=== PATIENT | male | born 1995 | race Two or more races ===

== ENCOUNTER 2016-11-05 11:02 | Emergency (ER) | payer BC, OTHER ==
[2016-11-05 11:08] VITALS: BP 129/70
--- NOTE | 2016-11-05 11:08 | ER Document Report ---
ED Medical Screen (RME) - General Stated Complaint: FINGER PAIN Time seen by provider: 11:06 Mode of Arrival: Ambulatory Information source: Patient Notes: 21-year-old male cut the palmar aspect of the middle phalanx of the fourth and fifth finger of the right hand with steel 30 minutes ago. Tetanus is current. He states the fourth finger is worse than the fifth. - Related Data Allergies/Adverse Reactions: No Known Allergies Allergy (Verified 11/05/16 11:05)
[2016-11-05] MEDS ORDERED: LIDOCAINE 1% INJ-PF (10 MG/ML) 30 ML SDV INJ ONE (12:00)
--- NOTE | 2016-11-05 13:23 | ER Document Report ---
ED Hand/Wrist Injury - General Chief Complaint: Laceration Stated Complaint: FINGER PAIN Mode of Arrival: Ambulatory Notes: Patient was carrying a steel plate that had a sharp edge when it slipped and cut his right fourth and fifth fingers. He has about a 1 cm laceration of each finger, the one on the fourth finger is significantly deeper into the subcutaneous fat tissue while the one on the fifth finger barely opens or spreads open. No other injuries or complaints. Says he can flex both those fingers and has sensation in the tips distally last tetanus shot was less than 6 months ago. Patient is right-hand dominant. TRAVEL OUTSIDE OF THE [place] IN LAST 30 DAYS: No - Related Data Allergies/Adverse Reactions: No Known Allergies Allergy (Verified 11/05/16 11:05) Past Medical History - General Information source: Patient - Social History Smoking Status: Unknown if Ever Smoked Chew tobacco use (# tins/day): No Frequency of alcohol use: None Drug Abuse: None Family History: Reviewed & Not Pertinent Patient has suicidal ideation: No Patient has homicidal ideation: No Surgical Hx: Negative - Immunizations Hx Diphtheria, Pertussis, Tetanus Vaccination: Yes Review of Systems - Review of Systems Constitutional: denies: Fever Cardiovascular: denies: Chest pain Gastrointestinal: denies: Abdominal pain Musculoskeletal: denies: Deformity Skin: See HPI Neurological/Psychological: No symptoms reported Physical Exam - Vital signs Vitals: Temp Pulse Resp BP Pulse Ox 98.0 F 58 L 14 129/70 H 99 11/05/16 11:06 11/05/16 11:06 11/05/16 11:06 11/05/16 11:06 11/05/16 11:06 Interpretation: Normal - Notes Notes: PHYSICAL EXAMINATION: GENERAL: Well-appearing, in no acute distress. Vital signs are normal. HEAD: Atraumatic, normocephalic. LUNGS: Breath sounds clear and equal bilaterally. HEART: Regular rate and rhythm without murmurs. ABDOMEN: Soft, nontender. No guarding or rebound. EXTREMITIES: Patient has lacerations on the palmar aspect of the right ring and fifth fingers. Laceration of the right ring finger is 2 cm in length and slightly U-shaped reverse flap in the midportion of that finger between the PIP and DIP. There is a 1 cm laceration of the right fifth finger, over the DIP joint to the radial side. This laceration barely spreads apart. Both fingers have good needle prick sensation at the tips. Both fingers are able to flex as expected without any loss of function. Good capillary refill of both finger nails. All other joints are normal. NEUROLOGICAL: Normal speech, normal gait. Normal sensory, motor, and reflex exams. Awake, alert, and oriented x3. Cranial nerves normal. SKIN: Warm, dry, no rashes. Course - Vital Signs Vital signs: Temp Pulse Resp BP Pulse Ox 98.0 F 58 L 14 129/70 H 99 11/05/16 11:06 11/05/16 11:06 11/05/16 11:06 11/05/16 11:06 11/05/16 11:06 Procedures - Laceration/Wound Repair Right Fourth Finger Wound length (cm): 2 - right fourth finger Wound's Depth, Shape: Flap - Reverse. No: Into muscle, Stellate Laceration pre-procedure: Sterile drapes applied Anesthetic type: 1% Lidocaine Volume Anesthetic (mLs): 2 Wound explored: Foreign body removed - Wound appears to have some very tiny, barely visible, black particles near the edge. I do not see any these particles deeper into the subcutaneous tissue of the wound. Patient says that there were some tiny metallic fragments on the plates that he was carrying. About 3 or 4 them appear to be embedded around the edge of the wound and I scrubbed very firmly and vigorously with a dampened 4 x 4 and I think I got all of these particles out. Irrigated w/ Saline (mLs): 1,000 Wound Debrided: Minimal Wound Repaired With: Sutures Suture Size/Type: 5:0 Number of Sutures: 3 Layer Closure?: No Post-procedure wound care: Sterile dressing applied Post-procedure NV exam normal: Yes Complications: No Notes: 11/05/16 16:45 In the adjacent fifth finger, there is a small 1 cm laceration that was prepped and anesthetized with less than 1 mL of Xylocaine. This wound was closed with 5 -0 Ethilon 1. Hands front picture: 1 - 2 lacerations shown in this diagram, one near the DIP of the fifth finger and the other one between the PIP and DIP of the fourth finger. Total of (3+1) 4 sutures to close both wounds. Discharge - Discharge Clinical Impression: Laceration of fingers without complication Qualifiers: Encounter type: initial encounter Qualified Code(s): S61.219A - Laceration without foreign body of unspecified finger without damage to nail, initial encounter Disposition: HOME, SELF-CARE Additional Instructions: LACERATION CARE: Your laceration has been sutured to keep the skin edges aligned during healing. The time of suture removal depends on the nature and location of your cut. Please follow the care instructions the doctor has outlined for you and return for further care, according to the schedule you've been given. Keep the wound and dressing clean. Unless you were told otherwise, you may shower daily, blotting the wound dry with a clean, unused towel. At other times, If the dressing gets wet or blood soaked, remove it and blot the wound dry, then reapply a new dressing. Unless you were instructed otherwise, dressings should be changed at least daily. If any signs of infection occur (swelling, redness, drainage, increasing tenderness, red streaks, tender lumps in the armpit or groin above the laceration, or fever), see the doctor immediately. SOAP CLEANSING: Gently wash the wound daily using a mild soap (like Ivory, Phisoderm, Neutrogena). Use warm water, rubbing gently until all debris, ooze, and crusting have been washed from the wound. Allow to dry briefly (about 10 minutes) after cleaning. Repeat this cleansing at least three times a day for the first two days and then once or twice a day. ANTIBIOTIC OINTMENT PROTECTION: Your wounds are such that dressing them is not practical or optional. After cleansing, you should apply a thin coating of antibiotic ointment ( Bacitracin, not Neosporin) to the wounds at least three times daily. This lessens infection risk, and may decrease the amount of scarring. Use a q-tip or dull butter knife, not your finger, to apply this ointment. Any debris or ooze which builds up in the ointment should be gently rubbed off with a sterile gauze pad. Harder crusting may need to be gently scrubbed off with a clean wash cloth with soap and warm water, perhaps applying a warm, wet wash cloth to the wound for ten minutes first. Development of redness, severe itching, or blistering may mean allergy to the ointment. See the doctor. USE OF ACETAMINOPHEN (Tylenol): Acetaminophen may be taken for pain relief or fever control. It's much safer than aspirin, offering a wider range of "safe" dosages. It is safe during . Some brand names are Tylenol, Panadol, Datril, Anacin 3, Tempra, and Liquiprin. Acetaminophen can be repeated every four hours. The following are maximum recommended dosages: WEIGHT Dose Drops Elixir Chewable( 80mg) (LBS.) drprs=droppers tsp=teaspoon >89 pounds or adults 650 mg to 900 mg Acetaminophen can be repeated every four hours. Maximum dose not to exceed 4000 mg a day. These maximum recommended dosages are slightly higher than the dosages written on the product container, but these dosages are very safe and below the toxic dosage for acetaminophen. FOLLOW-UP CARE: Your sutures should be removed in 7 days. To facilitate a timely removal of your sutures, you may return to the Emergency Department at [facility]. You do not need to call for an appointment, but the best time to come in for suture removal is early in the morning. If you have been referred to another physician for follow-up care, call that physicians office for an appointment as you were instructed. If you experience a significant change in your laceration, or if you are concerned there may be an infection (swelling, redness, drainage, increasing tenderness, red streaks, tender lumps in the armpit or groin above the laceration, or fever) , return to the Emergency Department immediately re-evaluation. Forms: Return to Work
== END 2016-11-05 13:15 | disposition home or self-care (01) ==
LOC: ER 11:02
PROC: 0HQFXZZ Repair Right Hand Skin, External Approach (ICD-10-PCS; principal; 2016-11-05)
DX: S61.214A Laceration without foreign body of right ring finger without damage to nail, initial encounter (principal); S61.216A Laceration without foreign body of right little finger without damage to nail, initial encounter; W45.8XXA Other foreign body or object entering through skin, initial encounter
CPT/HCPCS: 99282